=== PATIENT | male | born 1995 | race Caucasian/White ===

== ENCOUNTER 2019-08-08 14:21 | Emergency (ER) | payer OTHER ==
[2019-08-08 14:55] VITALS: BP 127/77; PULSE 99; TEMP 98; BMI 33.6
[2019-08-08] MEDS ORDERED: LIDOCAINE HCL 2% JELLY (30 ML/TUBE) TP ONE (15:15)
[2019-08-08] MEDS ORDERED: LIDOCAINE HCL 2% JELLY (5 ML/TUBE) ONE (15:21)
--- NOTE | 2019-08-08 15:24 | PDOC ---
History of Present Illness - General Chief Complaint: Pain, Acute Stated Complaint: JAW PAIN Time Seen by Provider: 08/08/19 15:01 History Source: Patient Exam Limitations: Clinical Condition - History of Present Illness Initial Comments: 08/08/19 15:34 Patient with no significant past medical history presented with complaint of one -week history of pain and swelling to right after gums around back teeth. Patient was seen by dentist 5 days ago for symptoms and placed on amoxicillin antibiotics and Motrin but patient reported pain persists and keeps him up at night. Denies fever, chills. Patient reported on Motrin 600 mg without improvement. Denies any other symptoms Is this a multiple visit Asthma Patient?: No Timing/Duration: 1 week Past History - Past Medical History Allergies/Adverse Reactions: Allergies Allergy/AdvReac Type Severity Reaction Status Date / Time No Known Allergies Allergy Verified 08/08/19 14:51 Home Medications: Ambulatory Orders Lidocaine 2% Viscous Oral [Xylocaine 2% Viscous Oral -] 1 ml PO Q6H PRN #50 ml 08/08/19 COPD: No - Psycho Social/Smoking Cessation Hx Smoking History: Unknown if ever smoked Have you smoked in the past 12 months: No Information on smoking cessation initiated: No Hx Alcohol Use: No Drug/Substance Use Hx: No Review of Systems - Review of Systems Able to Perform ROS?: Yes Is the patient limited Green[place]ic proficient: No Constitutional: No: Chills, Fever, Malaise HEENTM: Yes: Symptoms Reported, See HPI, Dental Problems (right upper gum pain and swelling). No: Eye Pain, Blurred Vision, Tearing, Recent change in vision, Double Vision, Cataracts, Ear Pain, Ocular Prothesis, Ear Discharge, Nose Pain, Nose Congestion, Tinnitus, Nose Bleeding, Hearing Loss, Throat Pain, Throat Swelling, Mouth Pain, Difficulty Swallowing, Mouth Swelling, Other Respiratory: No: Symptoms reported, See HPI, Cough, Orthopnea, Shortness of Breath, SOB with Exertion, SOB at Rest, Stridor, Wheezing, Productive cough, Hemoptysis, Other Cardiac (ROS): No: Symptoms Reported ABD/GI: No: Symptoms Reported Musculoskeletal: Yes: Symptoms Reported, See HPI. No: Muscle Pain All Other Systems: Reviewed and Negative *Physical Exam - Vital Signs Last Vital Signs Temp Pulse Resp BP Pulse Ox 98.0 F 99 H 16 127/77 100 08/08/19 14:47 08/08/19 14:47 08/08/19 14:47 08/08/19 14:47 08/08/19 14:47 - Physical Exam General Appearance: Yes: Nourished, Appropriately Dressed, Moderate Distress HEENT: positive: Normal ENT Inspection, TMs Normal, Pharynx Normal, Other ( moderate swelling with erythema to peridontal of right upper back molars with dental decay) Neck: positive: Supple Respiratory/Chest: positive: Lungs Clear, Normal Breath Sounds. negative: Respiratory Distress, Accessory Muscle Use Cardiovascular: positive: Regular Rhythm, Regular Rate Musculoskeletal: positive: Normal Inspection Extremity: positive: Normal Inspection Integumentary: positive: Normal Color Neurologic: positive: Fully Oriented, Alert, Normal Mood/Affect, Normal Response Medical Decision Making - Medical Decision Making 08/08/19 15:35 Patient with no significant past medical history presented with complaint of one -week history of pain and swelling to right after gums around back teeth. Patient was seen by dentist 5 days ago for symptoms and placed on amoxicillin antibiotics and Motrin but patient reported pain persists and keeps him up at night. Denies fever, chills. Patient reported on Motrin 600 mg without improvement. Denies any other symptoms Exam significant for moderate swelling to peridental of right upper molar with multiple dental decay's. Patient afebrile. Patient stable for discharge to continue home amoxicillin antibiotics and Motrin as needed for periodontitis and will add viscous lidocaine for pain. Lidocaine Urojet placed to right upper gums in the ED with much improvement in pain. Patient stable for discharge Discharge - Discharge Information Problems reviewed: Yes Clinical Impression/Diagnosis: Acute periodontitis Condition: Stable Disposition: HOME - Admission No - Additional Discharge Information Prescriptions: Lidocaine 2% Viscous Oral [Xylocaine 2% Viscous Oral -] 1 ml PO Q6H PRN #50 ml PRN Reason: dental pain - Follow up/Referral Referrals: Malinda Fay MD [Primary Care Provider] - - Patient Discharge Instructions Patient Printed Discharge Instructions: DI for Periodontitis Additional Instructions: Continue with prescribed antibiotics and Motrin by dentist. Use prescribed oral lidocaine in addition to Motrin as needed for pain. Follow-up with dentist as scheduled in 3 days - Post Discharge Activity
== END 2019-08-08 15:41 | disposition home or self-care (01) ==
LOC: JERFT 14:21
DX: K05.20 Aggressive periodontitis, unspecified (principal)
CPT/HCPCS: 99281-25

== ENCOUNTER 2022-07-17 18:35 | Emergency (ER) | payer OTHER ==
[2022-07-17 19:07] VITALS: BP 112/73; PULSE 92; RESP 20; TEMP 98.1; BMI 34.2
[2022-07-17] MEDS ORDERED: KETOROLAC TROMETHAMINE 30 MG/1 ML VIAL IM ONE (21:01)
[2022-07-17] MEDS ORDERED: KETOROLAC TROMETHAMINE 30 MG/1 ML VIAL ONE (21:16)
== END 2022-07-17 21:51 | disposition home or self-care (01) ==
LOC: JERFT 18:35
PROC: 3E0233Z Introduction of Anti-inflammatory into Muscle, Percutaneous Approach (ICD-10-PCS; principal; 2022-07-17)
DX: M54.50 Low back pain, unspecified (principal); V49.40XA Driver injured in collision with unspecified motor vehicles in traffic accident, initial encounter
CPT/HCPCS: 99284-25

== ENCOUNTER 2023-03-25 18:29 | Emergency (ER) | payer OTHER ==
[2023-03-25 18:52] VITALS: BP 126/73; PULSE 88; RESP 18; TEMP 98.9; BMI 33.0
== END 2023-03-25 20:29 | disposition home or self-care (01) ==
LOC: JERFT 18:29
DX: M25.572 Pain in left ankle and joints of left foot (principal); R22.42 Localized swelling, mass and lump, left lower limb; R26.2 Difficulty in walking, not elsewhere classified
CPT/HCPCS: 99282-25